=== PATIENT | female | born 1980 | race African-American/Black ===

== ENCOUNTER 2016-11-30 19:07 | Emergency (ER) | payer OTHER ==
[~2016-11-30] VITALS: Ht 167.6 cm; Wt 62.6 kg
[2016-11-30 19:21] VITALS: BP 133/99
== END 2016-11-30 23:11 | disposition home or self-care (01) ==
LOC: ER 19:10
DX: S46.911A Strain of unspecified muscle, fascia and tendon at shoulder and upper arm level, right arm, initial encounter (principal); X50.0XXA Overexertion from strenuous movement or load, initial encounter; Y93.89 Activity, other specified; Y92.89 Other specified places as the place of occurrence of the external cause; Y99.0 Civilian activity done for income or pay
CPT/HCPCS: 73030

== ENCOUNTER 2016-12-07 09:56 | Emergency (ER) | payer OTHER ==
[~2016-12-07] VITALS: Ht 167.6 cm; Wt 62.6 kg
[2016-12-07 13:24] VITALS: BP 124/86
== END 2016-12-07 16:30 | disposition home or self-care (01) ==
LOC: ER 09:56
DX: S46.911A Strain of unspecified muscle, fascia and tendon at shoulder and upper arm level, right arm, initial encounter (principal); S33.5XXA Sprain of ligaments of lumbar spine, initial encounter; X50.9XXA Other and unspecified overexertion or strenuous movements or postures, initial encounter; Y93.89 Activity, other specified; Y99.8 Other external cause status; Y92.69 Other specified industrial and construction area as the place of occurrence of the external cause

== ENCOUNTER 2017-12-22 14:37 | Emergency (ER) | payer OTHER ==
[~2017-12-22] VITALS: Ht 167.6 cm; Wt 59.0 kg
[2017-12-22 16:03] VITALS: BP 124/85
[2017-12-22] MEDS ORDERED: KETOROLAC TROMETH 60MG/2ML VIAL IM ONE (16:15)
== END 2017-12-22 17:02 | disposition home or self-care (01) ==
LOC: ER 14:40
DX: M62.830 Muscle spasm of back (principal); J45.909 Unspecified asthma, uncomplicated; G43.909 Migraine, unspecified, not intractable, without status migrainosus
CPT/HCPCS: 72070; 96372; 99284; J1885

== ENCOUNTER 2018-06-23 23:28 | Emergency (ER) | payer MEDICAID, OTHER ==
[~2018-06-23] VITALS: Ht 167.6 cm; Wt 60.8 kg
[~2018-06-23 23:28] MED LIST: ALBUTEROL SULF 2.5 MG/0.5ML(0.5%) NEB SOLN NEB STA
[2018-06-23 23:29] VITALS: BP 149/84
[2018-06-23] MEDS ORDERED: IPRATROPIUM BROM 0.5 MG/2.5ML INH SOL NEB ONE (23:30)
== END 2018-06-24 05:05 | disposition left against medical advice (07) ==
LOC: ER 23:33
DX: J45.909 Unspecified asthma, uncomplicated (principal); Z53.21 Procedure and treatment not carried out due to patient leaving prior to being seen by health care provider
CPT/HCPCS: 71045; 94640; J7611; J7644

== ENCOUNTER 2018-11-09 16:04 | Emergency (ER) | payer MEDICAID ==
[~2018-11-09] VITALS: Ht 167.6 cm; Wt 59.0 kg
[2018-11-09 16:34] VITALS: BP 120/76
[2018-11-09] MEDS ORDERED: KETOROLAC TROMETH 60MG/2ML VIAL IM ONE (19:15)
== END 2018-11-09 19:35 | disposition home or self-care (01) ==
LOC: ER 16:07
DX: S46.912A Strain of unspecified muscle, fascia and tendon at shoulder and upper arm level, left arm, initial encounter (principal); J45.909 Unspecified asthma, uncomplicated; W18.39XA Other fall on same level, initial encounter; Y93.B9 Activity, other involving muscle strengthening exercises; Y92.89 Other specified places as the place of occurrence of the external cause; Y99.8 Other external cause status
CPT/HCPCS: 73030; 96372; 99283; J1885

== ENCOUNTER 2019-06-09 17:55 | Emergency (ER) | payer SELFPAY ==
[~2019-06-09] VITALS: Ht 167.6 cm; Wt 62.6 kg
[2019-06-09 20:56] VITALS: BP 141/95
== END 2019-06-09 22:36 | disposition home or self-care (01) ==
LOC: ER 17:55
DX: S16.1XXA Strain of muscle, fascia and tendon at neck level, initial encounter (principal); S20.219A Contusion of unspecified front wall of thorax, initial encounter; J45.909 Unspecified asthma, uncomplicated; V43.52XA Car driver injured in collision with other type car in traffic accident, initial encounter; Y93.89 Activity, other specified; Y99.8 Other external cause status; Y92.410 Unspecified street and highway as the place of occurrence of the external cause
CPT/HCPCS: 71250; 72131